=== PATIENT | female | born 1945 | race Hispanic/Latino ===

== ENCOUNTER 2021-02-23 07:10 | Day surgery (SDC) | payer MEDICARE, BC ==
[2021-02-22 10:01] VITALS: BMI 30.9
[2021-02-23 07:59] LABS: #Eosinphils 0.5 thou/uL (0.0-0.7); #Lymphocytes 1.7 thou/uL (1.20-3.40); #Monocytes 0.9 thou/uL (0.11-0.59); #Neutrophils 4.6 thou/uL (1.40-6.50); %Basophils 0.3 % (0.0-1.0); %Eosinophils 6.5 % (0.0-10.0); %Lymphocytes 22.4 % (21.0-51.0); %Monocytes 11.8 % (0.0-10.0); Hemoglobin 9.7 g/dL (12.0-16.0); Mean Corpuscular Hemoglobin 28.8 pg (27.0-31.0); Mean Corpuscular Volume 89.9 fL (78.0-98.0); Platelet Count 161 thou/uL (130-400); RBC Distribution Width 15.4 % (11.5-14.5); Red Blood Cell (RBC) Count 3.36 mill/uL (4.20-5.40); White Blood Cell (WBC) Count 7.7 thou/uL (4.8-10.8)
[2021-02-23] MEDS ORDERED: Acetaminophen 500 MG TAB ONE (08:04)
[2021-02-23 08:13] LABS: Anion Gap 13 mmol/L (10-20); BUN (Urea Nitrogen) 33 mg/dL (9.8-20.1); Calc. Creatinine Clearance 25 mL/min (70-130); Calcium 9.5 mg/dL (7.8-10.44); Carbon Dioxide 30 mmol/L (23-31); Chloride 97 mmol/L (98-107); Glucose 105 mg/dL (83-110); Potassium 3.2 mmol/L (3.5-5.1); Sodium 137 mmol/L (136-145)
[2021-02-23] MEDS ORDERED: Clindamycin/D5W 600 mg/50 ml Premix Bag ONE (08:37)
[2021-02-23] MEDS ORDERED: Midazolam HCl 2 mg/2 ml Vial ONE ×2 (11:24→11:56)
[2021-02-23] MEDS ORDERED: Fentanyl 100 MCG/2 ML VIAL ONE ×2 (11:24→11:56)
[2021-02-23] MEDS ORDERED: Heparin 5,000 UNITS/ML VIAL ONE (11:45)
[2021-02-23] MEDS ORDERED: Protamine Sulfate 50 MG/5 ML VIAL ONE (11:45)
[2021-02-23] MEDS ORDERED: Bupivacaine HCl 0.5%/Epinephrine 1:200,000/PF 30 ml Vial ONE (11:50)
[2021-02-23] MEDS ORDERED: Propofol 1,000 MG/100 ML VIAL IV ONE (12:07)
[2021-02-23] MEDS ORDERED: PROPOFOL 200 MG/20 ML VIAL ONE (12:13)
[2021-02-23] MEDS ORDERED: Heparin 1,000 UNITS/ML VIAL ONE (14:35)
== END 2021-02-23 18:41 | disposition home or self-care (01) ==
LOC: SDC 07:10
PROVIDERS: ATTEND Specialist
PROC: 031C0ZF Bypass Left Radial Artery to Lower Arm Vein, Open Approach (ICD-10-PCS; principal; 2021-02-23)
DX: I12.0 Hypertensive chronic kidney disease with stage 5 chronic kidney disease or end stage renal disease (principal); E11.22 Type 2 diabetes mellitus with diabetic chronic kidney disease; N18.6 End stage renal disease; D63.1 Anemia in chronic kidney disease; G47.33 Obstructive sleep apnea (adult) (pediatric); M19.90 Unspecified osteoarthritis, unspecified site; E78.00 Pure hypercholesterolemia, unspecified; E07.9 Disorder of thyroid, unspecified; E66.01 Morbid (severe) obesity due to excess calories; Z68.30 Body mass index [BMI] 30.0-30.9, adult; Z87.891 Personal history of nicotine dependence; Z79.4 Long term (current) use of insulin; Z79.899 Other long term (current) drug therapy; Z88.1 Allergy status to other antibiotic agents; Z88.8 Allergy status to other drugs, medicaments and biological substances; Z89.611 Acquired absence of right leg above knee; Z95.820 Peripheral vascular angioplasty status with implants and grafts; Z99.2 Dependence on renal dialysis
CPT/HCPCS: 36415; 36416; 80048; 85025; 93005; 93010; J1644; J2250; J2704; J2720; J3010; J3490